=== PATIENT | male | born 1940 | race Caucasian/White ===

== ENCOUNTER 2020-12-04 14:53 | Emergency (ER) | payer MEDICARE ==
[~2020-12-04] VITALS: Ht 188 cm; Wt 117.1 kg
[2020-12-04] MEDS ORDERED: HYDR12.55 PO (15:08)
[2020-12-04] MEDS ORDERED: AMLO10TA PO (15:08)
[2020-12-04] MEDS ORDERED: METF500T13 PO (15:09)
[2020-12-04] MEDS ORDERED: CEPH500C PO (16:45)
[2020-12-04 17:11] VITALS: BP 170/79
== END 2020-12-04 17:12 | disposition home or self-care (01) ==
LOC: M ED 14:53
DX: S91.201A Unspecified open wound of right great toe with damage to nail, initial encounter (principal); Y92.9 Unspecified place or not applicable; Y93.9 Activity, unspecified; Y99.9 Unspecified external cause status; B35.1 Tinea unguium; I10 Essential (primary) hypertension; E11.9 Type 2 diabetes mellitus without complications; Z79.899 Other long term (current) drug therapy